=== PATIENT | male | born 2000 | race Caucasian/White ===

== ENCOUNTER 2019-05-03 10:08 | Emergency (ER) | payer SELFPAY ==
[~2019-05-03] VITALS: Ht 170.2 cm; Wt 67.3 kg
[2019-05-03 10:11] VITALS: Ht 170.2 cm; Wt 67.3 kg
[2019-05-03] MEDS ORDERED: VOLTAREN75 MG PO (11:31)
[2019-05-03 12:12] VITALS: BP 107/64
== END 2019-05-03 12:05 | disposition home or self-care (01) ==
LOC: D.ER 10:08
DX: S59.902A Unspecified injury of left elbow, initial encounter (principal); V49.9XXA Car occupant (driver) (passenger) injured in unspecified traffic accident, initial encounter; Y93.89 Activity, other specified; Y92.410 Unspecified street and highway as the place of occurrence of the external cause; M25.522 Pain in left elbow